=== PATIENT | female | born 1980 | race African-American/Black ===

== ENCOUNTER 2017-05-06 03:09 | Emergency (ER) | payer OTHER ==
[~2017-05-06] VITALS: Ht 162.6 cm; Wt 65.4 kg
[~2017-05-06 03:09] MED LIST: ENDOCET 5-3251 EACH PO; MOTRIN600 MG PO; MOTRIN800 MG PO; NOHOMEMEDS; NORVIR100 MG PO; REYATAZ150 MG PO; TRUVADA1 TABLET PO
[2017-05-06 04:02] LABS: EOSINOPHIL (%) 1.4 % (0-5); EOSINOPHIL COUNT 0.1 K/uL (0-0.3); HEMATOCRIT 34.2 % (36.0-46.0); IMMATURE GRANULOCYTE (%) 0.4 % (0.0-0.7); INSTRUMENT ABS NEUTROPHIL CT 6.8 K/uL; LYMPHOCYTE COUNT 2.6 K/uL (1.0-2.8); MCH 26.5 PG (29.0-34.0); MCHC 31.6 G/DL (30.0-36.0); MEAN PLAT.VOLUME 8.7 uM^3 (9.5-12.4); MONOCYTE (%) 4.9 % (3-12); MONOCYTE COUNT 0.5 K/uL (0-0.8); NEUTROPHIL (%) 67.1 % (45-76); NEUTROPHIL COUNT 6.8 K/uL (1.8-6.4); PLATELET COUNT 367 K/uL (156-360); RBC DIS.WIDTH-CV 15.5 % (11.8-14.6); RBC DIS.WIDTH-SD 47.8 % (39-53); RED BLOOD COUNT 4.07 M/uL (3.80-5.20); WHITE BLOOD COUNT 10.1 K/uL (4.1-10.2)
[2017-05-06 04:13] LABS: CHLORIDE 107 mEq/L (99-109); SODIUM 138 mEq/L (136-147)
[2017-05-06 04:14] LABS: GLUCOSE 97 mg/dL (70-99)
[2017-05-06 04:16] LABS: ANION GAP 9 MEQ/L (2-14)
[2017-05-06 04:18] LABS: GFR ESTIMATE (CALCULATED) > 59 mL/min/
[2017-05-06 04:19] LABS: UREA NITROGEN (BUN) 10 mg/dL (9-23)
[2017-05-06 05:11] LABS: ADD MIUA? YES; BILIRUBIN NEGATIVE; BLOOD NEGATIVE; COLOR STRAW ((YELLOW)); GLUCOSE (STRIP) NEGATIVE; KETONES NEGATIVE; LEUKOCYTES TRACE; NITRITE NEGATIVE; PROTEIN (STRIP) NEGATIVE; UROBILINOGEN 0.2 MG/DL (0.2-1.0)
[2017-05-06] MEDS ORDERED: CIPRO500 MG PO (05:32)
[2017-05-06 05:38] VITALS: BP 114/64
[2017-05-06 05:42] LABS: BACTERIA NONE SEEN /HPF; EPITHELIAL CELLS RARE /HPF; MUCUS NONE SEEN /LPF; RED BLOOD CELLS 0-5 /HPF (0-5); UCUL ADDED? NO; WHITE BLOOD CELLS 0-5 /HPF (0-5)
== END 2017-05-06 05:39 | disposition home or self-care (01) ==
LOC: EME 03:09
PROVIDERS: Emergency Medicine
DX: N39.0 Urinary tract infection, site not specified (principal); R10.2 Pelvic and perineal pain; Z21 Asymptomatic human immunodeficiency virus [HIV] infection status; F17.200 Nicotine dependence, unspecified, uncomplicated
CPT/HCPCS: 80048; 81003; 85025; 99281; 99284; J1885; J3010; J7030

== ENCOUNTER 2017-09-02 14:23 | Emergency (ER) | payer OTHER ==
[~2017-09-02] VITALS: Ht 160 cm; Wt 70.4 kg
[~2017-09-02 14:23] MED LIST changes: +CIPRO500 MG PO
[2017-09-02 15:22] LABS: HEMATOCRIT 33.5 % (36.0-46.0); MCHC 31.9 G/DL (30.0-36.0); MCV 81.5 FL (83-99); MEAN PLAT.VOLUME 9.1 uM^3 (9.5-12.4); PLATELET COUNT 358 K/uL (156-360); RBC DIS.WIDTH-CV 16.8 % (11.8-14.6); RBC DIS.WIDTH-SD 49.5 % (39-53); RED BLOOD COUNT 4.11 M/uL (3.80-5.20); WHITE BLOOD COUNT 13.8 K/uL (4.1-10.2)
[2017-09-02 15:28] LABS: CHLORIDE 107 mEq/L (99-109); SODIUM 137 mEq/L (136-147)
[2017-09-02 15:31] LABS: GLUCOSE 90 mg/dL (70-99)
[2017-09-02 15:32] LABS: ANION GAP 7 MEQ/L (2-14)
[2017-09-02 15:33] LABS: TOTAL BILIRUBIN 0.3 mg/dL (0.0-1.0)
[2017-09-02 15:34] LABS: ALKALINE PHOSPHATASE 82 IU/L (3-129); GFR ESTIMATE (CALCULATED) > 59 mL/min/; SERUM ETHYL ALCOHOL < 10 mg/dL
[2017-09-02 15:36] LABS: UREA NITROGEN (BUN) 14 mg/dL (9-23)
[2017-09-02 15:38] LABS: LIPASE 29 U/L (1.0-51.0)
[2017-09-02 16:46] LABS: AMPHETAMINE NEGATIVE (500 ng/mL); BARBITURATES NEGATIVE (200 ng/mL); BENZODIAZEPINES NEGATIVE (150 ng/mL); COCAINE PRESUMPTIVE POSITIVE (150 ng/mL); INTERNAL CONTROLS VALID? YES; METHADONE NEGATIVE (200 ng/mL); METHAMPHETAMINE NEGATIVE (500 ng/mL); OPIATES (MORPHINE) NEGATIVE (100 ng/mL); OXYCODONE NEGATIVE (100 ng/mL); PHENCYCLIDINE NEGATIVE (25 ng/mL); PROPOXYPHENE NEGATIVE (300 ng/mL); THC CANNABINOIDS NEGATIVE (50 ng/mL); TRICYCLIC ANTIDEPRESSANTS NEGATIVE (300 ng/mL)
[2017-09-02 16:47] LABS: ADD MEDTOX COMMENT Y
[2017-09-02] MEDS ORDERED: LORTAB 5-325 M1 EACH PO (17:55)
[2017-09-02] MEDS ORDERED: FLEXERIL10 MG PO (17:55)
[2017-09-02] MEDS ORDERED: NAPROSYN500 MG PO (17:55)
[2017-09-02 18:01] VITALS: BP 115/61
== END 2017-09-02 18:01 | disposition home or self-care (01) ==
LOC: EME 14:23
PROVIDERS: Nurse Practitioner Family
DX: F14.921 Cocaine use, unspecified with intoxication delirium (principal); S40.022A Contusion of left upper arm, initial encounter; S40.021A Contusion of right upper arm, initial encounter; S80.12XA Contusion of left lower leg, initial encounter; S80.11XA Contusion of right lower leg, initial encounter; X58.XXXA Exposure to other specified factors, initial encounter; M25.521 Pain in right elbow; F17.200 Nicotine dependence, unspecified, uncomplicated; F43.10 Post-traumatic stress disorder, unspecified; Z21 Asymptomatic human immunodeficiency virus [HIV] infection status
CPT/HCPCS: 73080; 80053; 83690; 84999; 85027; 99281; 99284; G0480; J1885

== ENCOUNTER 2017-11-08 16:09 | Emergency (ER) | payer OTHER ==
[~2017-11-08] VITALS: Ht 162.6 cm; Wt 61.3 kg
[~2017-11-08 16:09] MED LIST changes: +FLEXERIL10 MG PO; +LORTAB 5-325 M1 EACH PO; +NAPROSYN500 MG PO
[2017-11-08 19:07] LABS: APPEARANCE CLOUDY ((CLEAR)); BILIRUBIN NEGATIVE; BLOOD SMALL; COLOR YELLOW ((YELLOW)); GLUCOSE (STRIP) NEGATIVE; KETONES NEGATIVE; LEUKOCYTES SMALL; NITRITE NEGATIVE; PROTEIN (STRIP) NEGATIVE; SPECIFIC GRAVITY 1.014 (1.000-1.030); UROBILINOGEN 0.2 MG/DL (0.2-1.0)
[2017-11-08 19:23] LABS: BACTERIA 1+ /HPF; EPITHELIAL CELLS 2+ /HPF; MUCUS TRACE /LPF; RED BLOOD CELLS 0-5 /HPF (0-5); UCUL ADDED? YES
[2017-11-08] MEDS ORDERED: ZANTAC150 MG PO (20:16)
[2017-11-08] MEDS ORDERED: OMEPRAZOLE40 M1 PO (20:20)
[2017-11-08 21:13] VITALS: BP 114/68
== END 2017-11-08 21:14 | disposition home or self-care (01) ==
LOC: EME 16:09
PROVIDERS: Emergency Medicine Emergency Medical Services
DX: R10.816 Epigastric abdominal tenderness (principal); N92.1 Excessive and frequent menstruation with irregular cycle; Z98.51 Tubal ligation status; Z21 Asymptomatic human immunodeficiency virus [HIV] infection status; F17.200 Nicotine dependence, unspecified, uncomplicated
CPT/HCPCS: 80053; 81003; 83690; 84702; 85027; 87086